=== PATIENT | female | born 1990 | race Caucasian/White ===

== ENCOUNTER 2020-07-28 15:01 | Outpatient (REF) | payer OTHER, SELFPAY ==
[2020-07-30 19:46] LABS: HPV mRNA E6/E7 rflx Not Detected (Not Detected)
== END 2020-07-28 15:02 | disposition home or self-care (01) ==
LOC: HO.LAB 15:01
PROVIDERS: PCP Internal Medicine; Referring Provider Internal Medicine; Visit Provider Advanced Practice Midwife
DX: Z01.419 Encounter for gynecological examination (general) (routine) without abnormal findings (principal); Z30.09 Encounter for other general counseling and advice on contraception
CPT/HCPCS: 87624; 87625; 88142

== ENCOUNTER → 2020-08-09 12:00 | Outpatient (BNVA) | payer OTHER, SELFPAY | PROVIDERS: PCP Internal Medicine; Visit Provider Internal Medicine | DX: Z76.89 Persons encountering health services in other specified circumstances (principal) ==

== ENCOUNTER → 2020-09-22 08:17 | Outpatient (BNVA) | payer OTHER, SELFPAY | PROVIDERS: PCP Internal Medicine; Visit Provider Internal Medicine | DX: Z76.89 Persons encountering health services in other specified circumstances (principal) ==